=== PATIENT | male | born 1990 | race Caucasian/White ===

== ENCOUNTER 2020-07-29 16:22 | Emergency (ER) | payer SELFPAY | END 2020-07-29 18:00 | disposition left against medical advice (07) | LOC: ER1 16:22 | DX: Z53.21 Procedure and treatment not carried out due to patient leaving prior to being seen by health care provider (principal) ==

== ENCOUNTER 2021-02-19 20:00 | Emergency (ER) | payer OTHER ==
[2021-02-20] MEDS ORDERED: VENTOLIN HFA 66.7 GM INH (00:25)
[2021-02-20] MEDS ORDERED: ZITHROMAX250 MG PO (00:25)
[2021-02-20] MEDS ORDERED: MEDROL DOSEPAK 24 MG PO (00:25)
[2021-02-20] MEDS ORDERED: DELSYM30 MG/5 ML PO (00:25)
== END 2021-02-20 00:30 | disposition home or self-care (01) ==
LOC: ER1 20:00
DX: U07.1 COVID-19 (principal); F17.210 Nicotine dependence, cigarettes, uncomplicated
CPT/HCPCS: 99284; U0002